=== PATIENT | female | born 1960 | race Asian ===

== ENCOUNTER 2022-04-26 14:32 | Inpatient (IN) | payer OTHER ==
[~2022-04-26] VITALS: Ht 165.1 cm; Wt 42.6 kg
[2022-04-26 14:45] VITALS: BP_SYST 126
[2022-04-26] MEDS ORDERED: KETOROLAC TROMETHAMINE 30 MG VIAL IVP ONE (14:45)
[2022-04-26] MEDS ORDERED: ONDANSETRON HCL 4 MG/2 ML VIAL IVP ONE (14:45)
[2022-04-26 15:38] LABS: BILIRUBIN,URINE 2+ (NEGATIVE); BLOOD, URINE 1+ (NEGATIVE); CLARITY/URINE CLEAR (CLEAR); COLOR,URINE YELLOW (YELLOW); GLUCOSE,URINE 3+ (NEGATIVE); KETONES,URINE 1+ (NEGATIVE); LEUKOCYTE ESTERASE ,URINE NEGATIVE (NEGATIVE); NITRITE, URINE NEGATIVE (NEGATIVE); PH,URINE 5.5 (5.0-8.0); PROTEIN URINE TRACE (NEGATIVE)
[2022-04-26 15:39] LABS: UROBILINOGEN,URINE 0.2 (0.2-1.0)
[2022-04-26 15:42] LABS: BACTERIA,URINE None Seen /HPF (None Seen); MUCUS,URINE None Seen /LPF (None Seen); URINE SULFO SALICYLIC ACID NEGATIVE (NEGATIVE); WBC,URINE 0-3 /HPF (0-3)
[2022-04-26] MEDS ORDERED: ONDANSETRON 4 MG ODT TAB PO ONE (15:45)
[2022-04-26] MEDS ORDERED: KETOROLAC TROMETHAMINE 60 MG/2 ML VIAL IM ONE (15:45)
[2022-04-26 16:17] LABS: BASOPHILS % (AUTO) 0.4 % (0.0-2.0); EOSINOPHILS % (AUTO) 0.1 % (0.0-4.0); HEMATOCRIT 41.8 % (36-48); HEMOGLOBIN 14.2 g/dL (12.0-16.0); LYMPHOCYTES # (AUTO) 0.5 K/uL (1.0-5.5); LYMPHOCYTES % (AUTO) 8.4 % (20.5-51.5); MEAN CORPUSCULAR HEMOGLOBIN 30 pg (27-31); MEAN CORPUSCULAR HGB CONC 34 % (32-36); MEAN CORPUSCULAR VOLUME 89 fL (79.0-98.0); MONOCYTES # (AUTO) 0.4 K/uL (0.0-1.0); MONOCYTES % (AUTO) 6.5 % (1.7-9.3); NEUTROPHILS # (AUTO) 5.4 K/uL (1.8-7.7); NEUTROPHILS % (AUTO) 84.6 % (40.0-70.0); PLATELET COUNT (AUTO) 144 K/uL (130-430); RED BLOOD CELL COUNT(AUTO) 4.71 MIL/uL (4.2-6.2); RED CELL DISTRIBUTION WIDTH 15.1 % (9.0-15.0); WHITE BLOOD COUNT (AUTO) 6.4 K/uL (4.8-10.8)
[2022-04-26 16:31] LABS: CALCIUM 9.1 mg/dL (8.4-11.0); CREATININE 0.68 mg/dL (0.55-1.30)
[2022-04-26] MEDS: NACL 0.9% 1,000 ML IV SCH (20:00)
[2022-04-26] MEDS ORDERED: MORPHINE 2 MG/ML INJ. SYRINGE IVP PRN ×3 (20:00→20:15)
[2022-04-26] MEDS ORDERED: ZOLPIDEM TARTRATE 5 MG TABLET PO PRN (20:15)
[2022-04-26] MEDS ORDERED: MUPIROCIN 2% TOPICAL OINTMENT 22 GM NS PRN (20:15)
[2022-04-26] MEDS ORDERED: ACETAMINOPHEN 325 MG TABLET PO PRN ×2 (20:15→20:30)
[2022-04-26] MEDS ORDERED: POTASSIUM CHLORIDE 20 MEQ TAB.PRT.SR PO PRN (20:15)
[2022-04-26] MEDS ORDERED: MAGNESIUM SULFATE 50 ML IV PRN (20:15)
[2022-04-26] MEDS ORDERED: LORazepam 2 MG/ML VIAL IVP PRN (20:15)
[2022-04-26] MEDS ORDERED: DOCUSATE SODIUM 100 MG CAPSULE PO PRN (20:15)
[2022-04-26] MEDS ORDERED: NALOXONE HCL 0.4 MG/ML AMP (NARCAN) IVP PRN ×2 (20:15)
[2022-04-26 21:00] VITALS: BP_SYST 115
[2022-04-26] MEDS: HEPARIN SODIUM,PORCINE 5,000 UNITS/ML VIAL SUBCUT SCH (21:00)
[2022-04-27 02:39] VITALS: BP_SYST 152
[2022-04-27] MEDS: ONDANSETRON HCL 4 MG/2 ML VIAL IVP PRN ×2 (04:47→17:27)
[2022-04-27 08:00] LABS: CALCIUM 8.9 mg/dL (8.4-11.0); CREATININE 0.6 mg/dL (0.55-1.30)
[2022-04-27 08:08] LABS: BASOPHILS % (AUTO) 0.6 % (0.0-2.0); HEMATOCRIT 36.9 % (36-48); HEMOGLOBIN 12.5 g/dL (12.0-16.0); LYMPHOCYTES # (AUTO) 1.1 K/uL (1.0-5.5); LYMPHOCYTES % (AUTO) 24.7 % (20.5-51.5); MEAN CORPUSCULAR HEMOGLOBIN 30 pg (27-31); MEAN CORPUSCULAR HGB CONC 34 % (32-36); MEAN CORPUSCULAR VOLUME 89 fL (79.0-98.0); MONOCYTES # (AUTO) 0.6 K/uL (0.0-1.0); NEUTROPHILS # (AUTO) 2.8 K/uL (1.8-7.7); NEUTROPHILS % (AUTO) 60.7 % (40.0-70.0); PLATELET COUNT (AUTO) 125 K/uL (130-430); RED BLOOD CELL COUNT(AUTO) 4.15 MIL/uL (4.2-6.2); RED CELL DISTRIBUTION WIDTH 14.8 % (9.0-15.0); WHITE BLOOD COUNT (AUTO) 4.6 K/uL (4.8-10.8)
[2022-04-27] MEDS ORDERED: DEXTROSE 50% JECT 50 ML DISP.SYRIN IVP PRN (09:15)
[2022-04-27] MEDS: NACL 0.9% 1,000 ML IV SCH ×2 (10:32→22:47)
[2022-04-27] MEDS: HEPARIN SODIUM,PORCINE 5,000 UNITS/ML VIAL SUBCUT SCH ×2 (10:40→21:00)
[2022-04-27 12:00] VITALS: BP_SYST 132
[2022-04-27 16:00] VITALS: BP_SYST 105
[2022-04-27] MEDS: INSULIN LISPRO SLIDING SCALE 100 UNITS/ML, 3 ML VIAL (humaLOG) SUBCUT PRN (17:33)
[2022-04-27 20:00] VITALS: BP_SYST 102
[2022-04-27] MEDS: SODIUM CHLORIDE 500 MG TABLET PO SCH (22:47)
[2022-04-28 04:49] VITALS: BP_SYST 102
[2022-04-28 07:25] LABS: CALCIUM 8.2 mg/dL (8.4-11.0); CREATININE 0.61 mg/dL (0.55-1.30); THYROID STIMULATING HORMONE 1.6 uIu/mL (0.34-4.82); TOTAL BILIRUBIN 3.3 mg/dL (0.0-1.0)
[2022-04-28 07:58] LABS: BASOPHILS % (AUTO) 0.7 % (0.0-2.0); EOSINOPHILS # (AUTO) 0.1 K/uL (0.0-0.4); HEMATOCRIT 37.9 % (36-48); HEMOGLOBIN 12.6 g/dL (12.0-16.0); LYMPHOCYTES # (AUTO) 1.4 K/uL (1.0-5.5); LYMPHOCYTES % (AUTO) 24.8 % (20.5-51.5); MEAN CORPUSCULAR HEMOGLOBIN 30 pg (27-31); MEAN CORPUSCULAR HGB CONC 33 % (32-36); MEAN CORPUSCULAR VOLUME 91 fL (79.0-98.0); MONOCYTES # (AUTO) 0.5 K/uL (0.0-1.0); MONOCYTES % (AUTO) 9.6 % (1.7-9.3); NEUTROPHILS # (AUTO) 3.5 K/uL (1.8-7.7); NEUTROPHILS % (AUTO) 63.9 % (40.0-70.0); PLATELET COUNT (AUTO) 150 K/uL (130-430); RED BLOOD CELL COUNT(AUTO) 4.19 MIL/uL (4.2-6.2); RED CELL DISTRIBUTION WIDTH 14.8 % (9.0-15.0); WHITE BLOOD COUNT (AUTO) 5.5 K/uL (4.8-10.8)
[2022-04-28 10:07] LABS: AFP, TUMOR MARKER 5.4 ng/mL (0.0-9.2)
[2022-04-28] MEDS: SODIUM CHLORIDE 500 MG TABLET PO SCH ×2 (11:24→20:57)
[2022-04-28] MEDS: HEPARIN SODIUM,PORCINE 5,000 UNITS/ML VIAL SUBCUT SCH ×2 (11:26→21:02)
[2022-04-28] MEDS: NACL 0.9% 1,000 ML IV SCH ×2 (11:26→22:00)
[2022-04-28] MEDS: INSULIN LISPRO SLIDING SCALE 100 UNITS/ML, 3 ML VIAL (humaLOG) SUBCUT PRN ×3 (12:07→21:03)
[2022-04-28 14:12] VITALS: BP_SYST 106
[2022-04-28 18:34] VITALS: BP_SYST 106
[2022-04-28 20:05] VITALS: BP_SYST 109
[2022-04-29 00:41] VITALS: BP_SYST 120
[2022-04-29] MEDS: NACL 0.9% 1,000 ML IV SCH ×2 (03:38→23:00)
[2022-04-29] MEDS: INSULIN LISPRO SLIDING SCALE 100 UNITS/ML, 3 ML VIAL (humaLOG) SUBCUT PRN ×3 (06:14→18:08)
[2022-04-29 08:08] LABS: BASOPHILS % (AUTO) 0.9 % (0.0-2.0); EOSINOPHILS # (AUTO) 0.1 K/uL (0.0-0.4); EOSINOPHILS % (AUTO) 2.1 % (0.0-4.0); HEMATOCRIT 37.3 % (36-48); HEMOGLOBIN 12.6 g/dL (12.0-16.0); LYMPHOCYTES # (AUTO) 0.9 K/uL (1.0-5.5); MEAN CORPUSCULAR HEMOGLOBIN 30 pg (27-31); MEAN CORPUSCULAR HGB CONC 34 % (32-36); MEAN CORPUSCULAR VOLUME 90 fL (79.0-98.0); MONOCYTES # (AUTO) 0.4 K/uL (0.0-1.0); MONOCYTES % (AUTO) 11.2 % (1.7-9.3); NEUTROPHILS # (AUTO) 2.5 K/uL (1.8-7.7); NEUTROPHILS % (AUTO) 62.8 % (40.0-70.0); PLATELET COUNT (AUTO) 161 K/uL (130-430); RED BLOOD CELL COUNT(AUTO) 4.17 MIL/uL (4.2-6.2)
[2022-04-29 08:28] LABS: CALCIUM 8.6 mg/dL (8.4-11.0); CREATININE 0.51 mg/dL (0.55-1.30)
[2022-04-29 08:58] VITALS: BP_SYST 116
[2022-04-29] MEDS: SODIUM CHLORIDE 500 MG TABLET PO SCH (08:59)
[2022-04-29] MEDS: HEPARIN SODIUM,PORCINE 5,000 UNITS/ML VIAL SUBCUT SCH ×2 (09:08→21:00)
[2022-04-29 11:25] VITALS: BP_SYST 103
[2022-04-29 15:33] VITALS: BP_SYST 117
[2022-04-29 20:02] VITALS: BP_SYST 126
[2022-04-30 00:05] VITALS: BP_SYST 111
[2022-04-30] MEDS: NACL 0.9% 1,000 ML IV SCH (04:30)
[2022-04-30 07:49] LABS: BASOPHILS % (AUTO) 1.3 % (0.0-2.0); EOSINOPHILS % (AUTO) 1.1 % (0.0-4.0); HEMATOCRIT 38.9 % (36-48); HEMOGLOBIN 13.2 g/dL (12.0-16.0); LYMPHOCYTES % (AUTO) 25.1 % (20.5-51.5); MEAN CORPUSCULAR HEMOGLOBIN 30 pg (27-31); MEAN CORPUSCULAR HGB CONC 34 % (32-36); MEAN CORPUSCULAR VOLUME 89 fL (79.0-98.0); MONOCYTES # (AUTO) 0.4 K/uL (0.0-1.0); MONOCYTES % (AUTO) 10.3 % (1.7-9.3); NEUTROPHILS # (AUTO) 2.4 K/uL (1.8-7.7); NEUTROPHILS % (AUTO) 62.2 % (40.0-70.0); PLATELET COUNT (AUTO) 149 K/uL (130-430); RED BLOOD CELL COUNT(AUTO) 4.38 MIL/uL (4.2-6.2); RED CELL DISTRIBUTION WIDTH 15.1 % (9.0-15.0); WHITE BLOOD COUNT (AUTO) 3.9 K/uL (4.8-10.8)
[2022-04-30 08:26] LABS: CALCIUM 8.7 mg/dL (8.4-11.0); CREATININE 0.51 mg/dL (0.55-1.30)
[2022-04-30 08:31] LABS: PROTHROMBIN TIME 10.5 SECS (9.5-12.5)
[2022-04-30] MEDS: HEPARIN SODIUM,PORCINE 5,000 UNITS/ML VIAL SUBCUT SCH (08:34)
[2022-04-30] MEDS ORDERED: METF-380 PO (08:34)
[2022-04-30] MEDS ORDERED: SODIUM CHLORIDE 500 MG TABLET PO SCH (09:00)
[2022-04-30 09:09] VITALS: BP_SYST 113
[2022-04-30 11:07] VITALS: BP_SYST 112
[2022-04-30] MEDS ORDERED: MIDAZOLAM HCL 5 MG/5 ML VIAL ONE (12:06)
[2022-04-30 12:15] VITALS: BP_SYST 116
[2022-04-30] MEDS ORDERED: MEPERIDINE 100 MG INJ. 100 MG/ML VIAL ONE (12:27)
[2022-04-30 13:46] VITALS: BP_SYST 116
[2022-04-30 14:06] VITALS: BP_SYST 120
[2022-05-06] MEDS ORDERED: ONDA-8 TL (17:45)
[2022-05-06] MEDS ORDERED: ACET-2634 PO (17:45)
[2022-05-06] MEDS ORDERED: IBUP-1969 PO (17:45)
[2022-05-06] MEDS ORDERED: HYDR-3917 PO (17:45)
[2022-05-08 10:49] LABS: HEPATITIS A AB, IgM Negative (Negative); HEPATITIS B CORE AB, IgM Negative (Negative); HEPATITIS B SURFACE AG Negative (Negative)
[2022-05-13] MEDS ORDERED: VALS80TA2 PO (10:29)
[2022-05-13] MEDS ORDERED: PRO40 PO (10:32)
[2022-05-13] MEDS ORDERED: METO-542 (10:32)
== END 2022-04-30 14:39 | disposition home or self-care (01) | DRG 435 ==
LOC: SED 14:32 → SMU 19:46
PROVIDERS: ADMIT General Practice; ATTEND General Practice
PROC: 0FB13ZX Excision of Right Lobe Liver, Percutaneous Approach, Diagnostic (ICD-10-PCS; principal; 2022-04-30)
DX: C22.9 Malignant neoplasm of liver, not specified as primary or secondary (principal); E11.00 Type 2 diabetes mellitus with hyperosmolarity without nonketotic hyperglycemic-hyperosmolar coma (NKHHC); E44.1 Mild protein-calorie malnutrition; E87.1 Hypo-osmolality and hyponatremia; Z68.1 Body mass index [BMI] 19.9 or less, adult; R10.9 Unspecified abdominal pain; Z20.822 Contact with and (suspected) exposure to COVID-19; R16.0 Hepatomegaly, not elsewhere classified; E11.9 Type 2 diabetes mellitus without complications; R74.01 Elevation of levels of liver transaminase levels; Z79.899 Other long term (current) drug therapy
CPT/HCPCS: 36415; 71045; 76376; 76700-TC; 80048; 80053; 80074; 81000; 82105; 82378; 82533; 82962; 83036; 83690; 83735; 84443; 85025; 85610-TC; 85730-TC; 86301; 86304; 88307; 88309; 88313; 88341; 88342; 88361; 93005; 96360; 96372; 99285; J1644; J1885; J2175; J2250; J2270; J2405; J7030; Q0162